=== PATIENT | male | born 1965 | race Caucasian/White ===

== ENCOUNTER 2017-03-01 10:29 | Emergency (ER) | payer SELFPAY ==
[~2017-03-01] VITALS: Ht 182.9 cm; Wt 93.0 kg
[2017-03-01 10:30] VITALS: BP 167/95; PULSE 102; RESP 15; TEMP 97.8; O2SAT 97
[2017-03-01] MEDS ORDERED: ADDE30TA PO (10:45)
[2017-03-01] MEDS ORDERED: CLON0.2T PO (10:45)
[2017-03-01] MEDS ORDERED: LISI-515 PO (10:45)
[2017-03-01] MEDS ORDERED: TRAZ1TAB14 PO (10:45)
[2017-03-01 10:48] VITALS: BP 123/93; PULSE 86; RESP 18; O2SAT 97
[2017-03-01] MEDS ORDERED: methylPREDNISolone SOD SUCC 125 MG/2 ML VIAL IV PUSH ONE (11:00)
--- NOTE | 2017-03-01 11:06 | PD ---
HPI Chief Complaint: Respiratory Symptoms Time Seen by Provider: 10:47 Travel History International Travel<30 days: No Contact w/Intl Traveler<30days: No Traveled to known affect area: No History of Present Illness HPI 51yo M with PMH of COPD presents to the ED with c/o productive cough and sob for 2 weeks. States he went to urgent care and finished a 10 day course of antibiotics for URI. Pt said he has COPD but has no money for pumps. Also with sharp chest pain for 3-4 days with cough and inspiration. +Chills on and off but no documented fever. Cholecystectomy 2-3 months ago. Denies any history of PE/DVT, hemoptysis. PFSH Past Medical History Asthma: Yes Depression: Yes Hypertension: Yes Respiratory: Yes (COPD, BRONCHITIS) Past Surgical History Abdominal Surgery: Yes Cholecystectomy: Yes Tonsillectomy: Yes Other Surgery: Yes (right meniscus) Social History Alcohol Use: No Tobacco Use: Yes Substance Use: No Allergies-Medications (Allergen,Severity, Reaction): Coded Allergies: Penicillins (Verified Allergy, Severe, 03/01/17) Reported Meds & Prescriptions Reported Meds & Active Scripts Active Reported Adderall (Amphetamine-Dextroamphetamine) 30 Mg Tab 30 Mg PO TID Avoid late evening doses. Space doses at least 4 to 6 hours if more than once/day dosing. Trazodone (Trazodone HCl) 150 Mg Tablet 150 Mg PO HS Clonidine (Clonidine HCl) 0.2 Mg Tab 0.2 Mg PO DAILY Lisinopril 20 Mg Tab 20 Mg PO DAILY Review of Systems Except as stated in HPI: all other systems reviewed are Neg Physical Exam Narrative GENERAL: 51yo M in mild distress. SKIN: Focused skin assessment warm/dry. HEAD: Atraumatic. Normocephalic. EYES: Pupils equal and round. No scleral icterus. No injection or drainage. ENT: No nasal bleeding or discharge. Mucous membranes pink and moist. NECK: Trachea midline. No JVD. CARDIOVASCULAR: Regular rate and rhythm. No murmur appreciated. RESPIRATORY: No accessory muscle use. Clear to auscultation. Breath sounds equal bilaterally. Saturating at 98% on RA. GASTROINTESTINAL: Abdomen soft, non-tender, nondistended. MUSCULOSKELETAL: No obvious deformities. No clubbing. No cyanosis. No edema. NEUROLOGICAL: Awake and alert. No obvious cranial nerve deficits. Motor grossly within normal limits. Normal speech. PSYCHIATRIC: Appropriate mood and affect; insight and judgment normal. Data Data Last Documented VS Vital Signs Date Time Temp Pulse Resp B/P (MAP) Pulse Ox O2 Delivery O2 Flow Rate FiO2 03/01/17 10:48 86 18 123/93 (103) 97 Room Air 03/01/17 10:30 97.8 Orders Orders Complete Blood Count With Diff (03/01/17 11:00) Basic Metabolic Panel (Bmp) (03/01/17 11:00) D-Dimer (03/01/17 11:00) Act Partial Throm Time (Ptt) (03/01/17 11:00) Prothrombin Time / Inr (Pt) (03/01/17 11:00) Troponin I (03/01/17 11:00) Influenzae A/B Antigen (03/01/17 11:00) Chest, Single Ap (03/01/17 11:00) Methylprednisolone So Succ Inj (Solumedr (03/01/17 11:00) Albuterol-Ipratropium Neb (Duoneb Neb) (03/01/17 11:00) Labs Laboratory Tests Test 03/01/17 11:06 White Blood Count 11.2 TH/MM3 Red Blood Count 4.81 MIL/MM3 Hemoglobin 14.6 GM/DL Hematocrit 43.8 % Mean Corpuscular Volume 90.9 FL Mean Corpuscular Hemoglobin 30.3 PG Mean Corpuscular Hemoglobin Concent 33.4 % Red Cell Distribution Width 13.7 % Platelet Count 182 TH/MM3 Mean Platelet Volume 9.3 FL Neutrophils (%) (Auto) 75.5 % Lymphocytes (%) (Auto) 16.8 % Monocytes (%) (Auto) 4.9 % Eosinophils (%) (Auto) 2.6 % Basophils (%) (Auto) 0.2 % Neutrophils # (Auto) 8.4 TH/MM3 Lymphocytes # (Auto) 1.9 TH/MM3 Monocytes # (Auto) 0.5 TH/MM3 Eosinophils # (Auto) 0.3 TH/MM3 Basophils # (Auto) 0.0 TH/MM3 CBC Comment DIFF FINAL Differential Comment Prothrombin Time 10.3 SEC Prothromb Time International Ratio 0.9 RATIO Activated Partial Thromboplast Time 27.1 SEC D-Dimer Quantitative (PE/DVT) LESS THAN 0.19 MG/L FEU Blood Urea Nitrogen 11 MG/DL Creatinine 1.12 MG/DL Random Glucose 95 MG/DL Calcium Level 8.5 MG/DL Sodium Level 140 MEQ/L Potassium Level 4.0 MEQ/L Chloride Level 107 MEQ/L Carbon Dioxide Level 25.1 MEQ/L Anion Gap 8 MEQ/L Estimat Glomerular Filtration Rate 69 ML/MIN Troponin I LESS THAN 0.02 NG/ML MDM Medical Decision Making Medical Screen Exam Complete: Yes Emergency Medical Condition: Yes Interpretation(s) EKG: NSR 91bpm. Normal axis. No ST segment elevation or depression. Differential Diagnosis Bronchitis vs. Pneumonia vs. atypical chest pain vs. PE vs. COPD Narrative Course 51yo M with URI symptoms. Labs reviewed, WBC 11.2. Troponin negative. D- dimer negative. CXR showed no acute disease. Pt given methylprednisolone and duonebs x3 because he wants it and has COPD. Pt is not wheezing. Pt reevaluated at bedside and feels better. Return precautions given. Diagnosis Primary Impression: URI (upper respiratory infection) Qualified Codes: J06.9 - Acute upper respiratory infection, unspecified Patient Instructions: General Instructions Departure Forms: Tests/Procedures Additional Instructions: Please follow up with [facility] in 3-7 days. Return to the ED if symptoms worsen. Med/Other Pt SpecificInfo: Prescription(s) given Scripts Albuterol 18 GM Inh (Ventolin Hfa 18 GM Inh) 90 Mcg/Act Aer 2 PUFF INH Q4H Y for SHORTNESS OF BREATH, #1 INHALER 0 Refills Prov: Laura Cardozo DO 03/01/17 Prednisone (Deltasone) 20 Mg Tab 20 MG PO BID for 5 Days, #10 TAB 0 Refills Prov: Laura Cardozo DO 03/01/17 Disposition: 01 DISCHARGE HOME Condition: Stable Laura Cardozo DO Mar 01, 2017 11:06
[2017-03-01] MEDS: RESP: ALBUTEROL 2.5 MG/IPRATROPIUM 0.5 MG NEB (SCH) INH (11:09)
--- NOTE | 2017-03-01 11:33 | RADRPT ---
EXAM DATE/TIME: 03/01/2017 11:10 [facility] COMPARISON: No previous studies available for comparison. INDICATIONS : Shortness of breath and midline chest pain that has worsened in the last three days. MEDICAL HISTORY : Chronic obstructive pulmonary disease. Asthma. SURGICAL HISTORY : None. ENCOUNTER: Initial ACUITY: 2 weeks PAIN SCORE: 5/10 LOCATION: Chest, midline. FINDINGS: A single view of the chest demonstrates the lungs to be symmetrically aerated without evidence of mas s, infiltrate or effusion. The cardiomediastinal contours are unremarkable. Osseous structures are intact. CONCLUSION: No acute disease. Gavin Osborn MD on March 01, 2017 at 11:32 Board Certified Radiologist. This report was verified electronically.
[2017-03-01 11:59] LABS: AUTOMATED NEUTROPHIL # 8.4 TH/MM3 (1.8-7.7); BASOPHIL % 0.2 % (0.0-2.0); EOSINOPHIL # 0.3 TH/MM3 (0-0.4); EOSINOPHIL % 2.6 % (0.0-4.0); HEMATOCRIT 43.8 % (39.0-51.0); HEMO FLAGS DIFF FINAL; LYMPH % 16.8 % (9.0-44.0); LYMPHOCYTE # 1.9 TH/MM3 (1.0-4.8); MEAN CELL VOLUME 90.9 FL (80.0-100.0); MEAN CORPUSCULAR HEMOGLOBIN 30.3 PG (27.0-34.0); MEAN CORPUSCULAR HGB CONC 33.4 % (32.0-36.0); MONO % 4.9 % (0.0-8.0); NEUT % 75.5 % (16.0-70.0); PLATELET COUNT 182 TH/MM3 (150-450); RED BLOOD COUNT 4.81 MIL/MM3 (4.50-5.90); RED CELL DISTRIBUTION WIDTH 13.7 % (11.6-17.2); WHITE BLOOD COUNT 11.2 TH/MM3 (4.0-11.0)
[2017-03-01 12:16] LABS: APTT (PATIENT) 27.1 SEC (24.3-30.1); INTERNATIONAL NORMALIZED RATIO 0.9 RATIO; PROTHROMBIN TIME - PATIENT 10.3 SEC (9.8-11.6)
[2017-03-01 12:18] LABS: ANION GAP 8 MEQ/L (5-15); BICARBONATE 25.1 MEQ/L (21.0-32.0); BLOOD UREA NITROGEN 11 MG/DL (7-18); CHLORIDE 107 MEQ/L (98-107); GLOMERULAR FILTRATION RATE 69 ML/MIN (>89); SODIUM (NA) 140 MEQ/L (136-145)
[2017-03-01] MEDS ORDERED: VENTAER INH (13:46)
[2017-03-01] MEDS ORDERED: PRED-503 PO (13:46)
--- NOTE | 2017-03-02 12:49 | EKG ---
Date Performed: 03/01/2017 Time Performed: 10:42:56 PTAGE: 51 years EKG: Sinus rhythm NORMAL ECG INTERPRETATION BASED ON A DEFAULT AGE OF 40 YEARS NO PREVIOUS TRACING DOCTOR: Juno Aaron Interpretating Date/Time 03/02/2017 12:49:10
== END 2017-03-01 13:48 | disposition home or self-care (01) ==
LOC: NEPC 10:29
DX: J06.9 Acute upper respiratory infection, unspecified (principal); J44.9 Chronic obstructive pulmonary disease, unspecified; F32.9 Major depressive disorder, single episode, unspecified; I10 Essential (primary) hypertension; Z72.0 Tobacco use; Z88.0 Allergy status to penicillin; Z79.899 Other long term (current) drug therapy
CPT/HCPCS: 71010; 80048; 84484; 85025; 85379; 85610; 85730; 87804; 93005; 94640; 94664; 96374; 99285; J2930

== ENCOUNTER 2017-03-04 10:31 | Emergency (ER) | payer SELFPAY ==
[~2017-03-04] VITALS: Ht 182.9 cm; Wt 90.0 kg
[~2017-03-04 10:31] MED LIST: ADDE30TA PO; CLON0.2T PO; LISI-515 PO; PRED-503 PO; TRAZ1TAB14 PO; VENTAER INH
[2017-03-04 10:33] VITALS: BP 139/88; PULSE 93; RESP 18; TEMP 98.1; O2SAT 95
[2017-03-04] MEDS ORDERED: RESP: LIDOCAINE HCL 4% PF 5 ML NEB NEB ONE (13:15)
[2017-03-04] MEDS ORDERED: predniSONE 20 MG TAB PO ONE (13:15)
--- NOTE | 2017-03-04 13:31 | PD ---
HPI Chief Complaint: Respiratory Symptoms Time Seen by Provider: 13:15 Travel History International Travel<30 days: No Contact w/Intl Traveler<30days: No Traveled to known affect area: No History of Present Illness HPI The patient is a 51-year-old male who presents to the emergency department for cough symptoms of 3 weeks duration. The patient states she was evaluated in the emergency department 3 days ago, was diagnosed with COPD exacerbation and discharged home with an albuterol inhaler. The patient states he is unable to afford his albuterol inhaler. He does have a history of tobacco use, last cigarette was at 10:30 AM today. He does note a productive cough producing yellow sputum as well as anterior chest wall pain and upper back pain secondary to coughing. He also complains of mild congestion and sore throat. He does note mild shortness of breath with wheezing. The patient does have a nebulizer at home, however, does not have the medications to use and his nebulizer. The patient had a workup in the emergency department 3 days prior to arrival which included chest x-ray and lab work which was unremarkable. The patient states he recently moved to the local area and does not have a local primary physician. PFSH Past Medical History Asthma: Yes Depression: Yes Hypertension: Yes Respiratory: Yes (COPD, BRONCHITIS) Past Surgical History Abdominal Surgery: Yes Cholecystectomy: Yes Tonsillectomy: Yes Other Surgery: Yes (right meniscus) Social History Alcohol Use: No Tobacco Use: Yes Substance Use: No Allergies-Medications (Allergen,Severity, Reaction): Coded Allergies: Penicillins (Verified Allergy, Severe, 03/04/17) Reported Meds & Prescriptions Reported Meds & Active Scripts Active Ventolin Hfa 18 GM Inh (Albuterol Sulfate) 90 Mcg/Act Aer 2 Puff INH Q4H PRN Deltasone (Prednisone) 20 Mg Tab 20 Mg PO BID 5 Days Reported Adderall (Amphetamine-Dextroamphetamine) 30 Mg Tab 30 Mg PO TID Avoid late evening doses. Space doses at least 4 to 6 hours if more than once/day dosing. Trazodone (Trazodone HCl) 150 Mg Tablet 150 Mg PO HS Clonidine (Clonidine HCl) 0.2 Mg Tab 0.2 Mg PO DAILY Lisinopril 20 Mg Tab 20 Mg PO DAILY Review of Systems Except as stated in HPI: all other systems reviewed are Neg General / Constitutional: No: Fever HENT: Positive: Sore Throat, Congestion Cardiovascular: Positive: Chest Pain or Discomfort (chest wall pain secondary to coughing) Respiratory: Positive: Cough, Shortness of Breath, Wheezing Gastrointestinal: No: Nausea, Vomiting Musculoskeletal: No: Weakness Neurologic: No: Dizziness Physical Exam Narrative GENERAL: Awake, alert, nontoxic-appearing 51-year-old male who appears his stated age and is in no acute respiratory distress. SKIN: Focused skin assessment warm/dry. HEAD: Atraumatic. Normocephalic. EYES: Pupils equal and round. No scleral icterus. No injection or drainage. ENT: No nasal bleeding or discharge. Cobblestoning in posterior oropharynx. NECK: Trachea midline. No JVD. CARDIOVASCULAR: Regular rate and rhythm. No murmur appreciated. RESPIRATORY: No accessory muscle use. Prolonged expiratory phase with diffuse wheezing. GASTROINTESTINAL: Abdomen soft, non-tender, nondistended. No rebound tenderness. MUSCULOSKELETAL: No obvious deformities. No clubbing. No cyanosis. No edema. NEUROLOGICAL: Awake and alert. No obvious cranial nerve deficits. Motor grossly within normal limits. Normal speech. PSYCHIATRIC: Appropriate mood and affect; insight and judgment normal. Data Data Last Documented VS Vital Signs Date Time Temp Pulse Resp B/P (MAP) Pulse Ox O2 Delivery O2 Flow Rate FiO2 03/04/17 14:51 82 18 151/79 (103) 98 03/04/17 13:33 Room Air 03/04/17 10:33 98.1 Orders Orders Oximetry (03/04/17 13:15) Albuterol-Ipratropium Neb (Duoneb Neb) (03/04/17 13:15) Lidocaine Pf 4% Neb (Lidocaine Pf 4% Neb (03/04/17 13:15) Prednisone (Deltasone) (03/04/17 13:15) MDM Medical Decision Making Medical Screen Exam Complete: Yes Emergency Medical Condition: Yes Medical Record Reviewed: Yes Differential Diagnosis Differential diagnosis includes COPD exacerbation, bronchitis, pneumonia, congestive heart failure, cardiomyopathy, URI, viral syndrome. Narrative Course I reviewed the patient's EMR from March 01, 2017. The patient had an x-ray which was unremarkable. D-dimer was less than 0.19, no indication CT pulmonary angiogram. Therefore, the patient was administered prednisone 60 mg orally and 3 DuoNeb's with respiratory lidocaine. The patient is reevaluated after nebulizers, his wheezing is significantly improved. The patient be discharged home on prednisone, Zithromax, and albuterol nebulizers. Diagnosis Primary Impression: Bronchitis Referrals: [facility] Patient Instructions: General Instructions Additional Instructions: Medications as directed. Stop smoking. Follow-up at the health clinic. Work excuse for 2 days. Return if symptoms worsen or progress. Med/Other Pt SpecificInfo: Prescription(s) given Scripts Albuterol Neb (Albuterol Neb) 2.5 Mg/3 Ml Neb 2.5 MG NEB Q4HR NEB Y for SHORTNESS OF BREATH, #60 NEBULE 0 Refills Prov: El Chang MD 03/04/17 Azithromycin (Zithromax Z-Ozzie) 250 Mg Dspk 250 MG PO DIRECTED for Infection, #1 DSPK 0 Refills 500 MG (2 tabs) day 1, then 1 tab days 2-5. Prov: El Chang MD 03/04/17 Prednisone (Deltasone) 20 Mg Tab 40 MG PO DAILY for 5 Days, #10 TAB 0 Refills Prov: El Chang MD 03/04/17 Disposition: 01 DISCHARGE HOME Condition: Stable El Chang MD Mar 04, 2017 13:31
[2017-03-04 13:33] VITALS: O2SAT 97
[2017-03-04] MEDS: RESP: ALBUTEROL 2.5 MG/IPRATROPIUM 0.5 MG NEB (SCH) INH ×2 (13:45→13:46)
[2017-03-04 14:51] VITALS: BP 151/79
[2017-03-04] MEDS ORDERED: PRED-503 PO (15:09)
[2017-03-04] MEDS ORDERED: ZITHTAB PO (15:09)
[2017-03-04] MEDS ORDERED: ALBU0.08 NEB (15:09)
--- NOTE | 2017-03-05 10:25 | PD ---
Data Data Last Documented VS Vital Signs Date Time Temp Pulse Resp B/P (MAP) Pulse Ox O2 Delivery O2 Flow Rate FiO2 03/04/17 14:51 82 18 151/79 (103) 98 03/04/17 13:33 Room Air 03/04/17 10:33 98.1 Orders Orders Oximetry (03/04/17 13:15) Albuterol-Ipratropium Neb (Duoneb Neb) (03/04/17 13:15) Lidocaine Pf 4% Neb (Lidocaine Pf 4% Neb (03/04/17 13:15) Prednisone (Deltasone) (03/04/17 13:15) Ed Discharge Order (03/04/17 15:10) MDM Supervised Visit with [facility]: No Narrative Course Received a request from case management to refill this patient's medications as he lost on the bus. Patient seen and examined for bronchitis yesterday. I called and his prescriptions as prescribed by Dr. Peg Chang last night. Diagnosis Primary Impression: Bronchitis Referrals: NO PRIMARY CARE PHYSICIAN (PCP) [facility] Patient Instructions: General Instructions Departure Forms: Tests/Procedures Additional Instruction: Medications as directed. Stop smoking. Follow-up at the health clinic. Work excuse for 2 days. Return if symptoms worsen or progress. Scripts Albuterol Neb (Albuterol Neb) 2.5 Mg/3 Ml Neb 2.5 MG NEB Q4HR NEB Y for SHORTNESS OF BREATH, #60 NEBULE 0 Refills Prov: El Chang MD 03/04/17 Azithromycin (Zithromax Z-Ozzie) 250 Mg Dspk 250 MG PO DIRECTED for Infection, #1 DSPK 0 Refills 500 MG (2 tabs) day 1, then 1 tab days 2-5. Prov: El Chang MD 03/04/17 Prednisone (Deltasone) 20 Mg Tab 40 MG PO DAILY for 5 Days, #10 TAB 0 Refills Prov: El Chang MD 03/04/17 Disposition: 01 DISCHARGE HOME Condition: Stable Sterling Miller MD Mar 05, 2017 10:25
== END 2017-03-04 15:23 | disposition home or self-care (01) ==
LOC: NEPD 10:31
DX: J40 Bronchitis, not specified as acute or chronic (principal); J44.1 Chronic obstructive pulmonary disease with (acute) exacerbation; F32.9 Major depressive disorder, single episode, unspecified; I10 Essential (primary) hypertension; F17.210 Nicotine dependence, cigarettes, uncomplicated; Z79.899 Other long term (current) drug therapy; Z88.0 Allergy status to penicillin
CPT/HCPCS: 94640; 94664; 99284; J7512

== ENCOUNTER 2017-03-28 14:25 | Emergency (ER) | payer OTHER ==
[~2017-03-28] VITALS: Ht 182.9 cm; Wt 92.0 kg
[~2017-03-28 14:25] MED LIST changes: +ALBU0.08 NEB; +ZITHTAB PO
[2017-03-28] MEDS ORDERED: IOHEXOL 350 MG/ML 10 ML VIAL (for RAD DIAG) IVCONTRAST ONE (14:26)
[2017-03-28 14:41] VITALS: BP 177/114; PULSE 94; RESP 20; TEMP 97.7; O2SAT 95
[2017-03-28] MEDS ORDERED: MORPHINE SULFATE 4 MG/ML INJ IV PUSH ONE (15:00)
[2017-03-28] MEDS ORDERED: ONDANSETRON HCL 4 MG/2 ML VIAL IVP ONE (15:00)
[2017-03-28] MEDS ORDERED: SODIUM CHLORIDE 0.9% FLUSH 10 ML FLUSH IV FLUSH PRN (15:00)
[2017-03-28 15:11] VITALS: RESP 20
[2017-03-28 15:38] LABS: AUTOMATED NEUTROPHIL # 4.2 TH/MM3 (1.8-7.7); BASOPHIL % 0.5 % (0.0-2.0); EOSINOPHIL # 0.4 TH/MM3 (0-0.4); EOSINOPHIL % 4.2 % (0.0-4.0); HEMATOCRIT 48.4 % (39.0-51.0); HEMO FLAGS DIFF FINAL; LYMPH % 38.2 % (9.0-44.0); LYMPHOCYTE # 3.2 TH/MM3 (1.0-4.8); MEAN CELL VOLUME 88.5 FL (80.0-100.0); MEAN CORPUSCULAR HEMOGLOBIN 30.6 PG (27.0-34.0); MEAN CORPUSCULAR HGB CONC 34.6 % (32.0-36.0); MONO % 6.2 % (0.0-8.0); NEUT % 50.9 % (16.0-70.0); PLATELET COUNT 213 TH/MM3 (150-450); RED BLOOD COUNT 5.47 MIL/MM3 (4.50-5.90); RED CELL DISTRIBUTION WIDTH 13.7 % (11.6-17.2); WHITE BLOOD COUNT 8.3 TH/MM3 (4.0-11.0)
[2017-03-28 15:47] LABS: BLOOD, URINE NEG (NEG); COMMENT (UR) CULT NOT INDICATED; CULTURE IF INDICATED CULT NOT INDICATED; GLUCOSE,URINE NEG (NEG); HYALINE CAST, URINE 1 /lpf (RARE); KETONE, URINE NEG (NEG); MUCUS URINE FEW /lpf (OCC); NITRITE,URINE NEG (NEG); URINE COLOR YELLOW (YELLW/STRAW)
--- NOTE | 2017-03-28 15:54 | RADRPT ---
EXAM DATE/TIME: 03/28/2017 15:24 [facility] COMPARISON: No previous studies available for comparison. INDICATIONS : Right upper quadrant pain. IV CONTRAST: 100 cc Omnipaque 350 (iohexol) IV ORAL CONTRAST: No oral contrast ingested. RADIATION DOSE: 7.56 CTDIvol (mGy) MEDICAL HISTORY : Pancreatitis. Hypertension. SURGICAL HISTORY : Cholecystectomy. ENCOUNTER: Initial ACUITY: 1 week PAIN SCALE: 5/10 LOCATION: Right upper quadrant TECHNIQUE: Volumetric scanning of the abdomen and pelvis was performed. Using automated exposure control and ad justment of the mA and/or kV according to patient size, radiation dose was kept as low as reasonably achievable to obtain optimal diagnostic quality images. DICOM format image data is available electro nically for review and comparison. FINDINGS: LOWER LUNGS: The visualized lower lungs are clear. LIVER: Liver density suggesting a ptosis. No focal lesion is seen. Cholecystectomy clips are present. There is no dilation of the biliary tree. SPLEEN: Normal size without lesion. PANCREAS: Within normal limits. KIDNEYS: Normal in size and shape. There is no mass, stone or hydronephrosis. ADRENAL GLANDS: Within normal limits. VASCULAR: There is no aortic aneurysm. There is mild atherosclerotic disease. BOWEL/MESENTERY: The stomach, small bowel, and colon demonstrate no acute abnormality. There is no free intraperitone al air or fluid. ABDOMINAL WALL: Within normal limits. RETROPERITONEUM: There is no lymphadenopathy. BLADDER: No wall thickening or mass. REPRODUCTIVE: Within normal limits. INGUINAL: There is no lymphadenopathy or hernia. MUSCULOSKELETAL: There are mild degenerative changes of the lumbar spine. CONCLUSION: 1. No acute finding is identified within the abdomen or pelvis to explain the clinical symptoms. 2. Nonacute findings include mild atherosclerotic disease and mild hepatomegaly with steatosis. Jose Car MD on March 28, 2017 at 15:48 Board Certified Radiologist. This report was verified electronically.
--- NOTE | 2017-03-28 16:06 | PD ---
HPI Chief Complaint: Abdominal Pain Time Seen by Provider: 14:42 Travel History International Travel<30 days: No Contact w/Intl Traveler<30days: No Traveled to known affect area: No History of Present Illness HPI 51-year-old male presents to emergency department complaining of abdominal pain for 4-5 days. Patient states that his pain is the right upper quadrant and is severe in nature. Does not radiate and is constant. Says that he has had an alcohol binge over the last 4-5 days and has felt 'cold' for about 2 days. Patient denies fever, chest pain, shortness of breath, diarrhea. Patient did feel nauseous and Zofran was administered by [facility]. Patient states that he has had a history of recurrent pancreatitis but was unable to tell me the cause and he does not follow-up with a specialist. Patient does want to go to rehabilitation to quit drinking. PFSH Past Medical History Asthma: Yes Depression: Yes Diminished Hearing: No Hypertension: Yes Respiratory: Yes (COPD, BRONCHITIS) Pancreatitis: Yes Tetanus Vaccination: > 5 Years Influenza Vaccination: No Past Surgical History Abdominal Surgery: Yes Cholecystectomy: Yes Tonsillectomy: Yes Other Surgery: Yes (right meniscus) Social History Alcohol Use: Yes (occassional) Tobacco Use: No Substance Use: No Allergies-Medications (Allergen,Severity, Reaction): Coded Allergies: Penicillins (Verified Allergy, Severe, 03/28/17) Reported Meds & Prescriptions Reported Meds & Active Scripts Active No Active Prescriptions or Reported Medications Review of Systems Except as stated in HPI: all other systems reviewed are Neg Physical Exam Narrative GENERAL: Well-developed well-nourished in moderate distress SKIN: Focused skin assessment warm/dry. HEAD: Atraumatic. Normocephalic. EYES: Pupils equal and round. No scleral icterus. No injection or drainage. ENT: No nasal bleeding or discharge. Mucous membranes slightly dry NECK: Trachea midline. No JVD. No lymphadenopathy CARDIOVASCULAR: Regular rate and rhythm. No murmur appreciated. RESPIRATORY: No accessory muscle use. Clear to auscultation. Breath sounds equal bilaterally. GASTROINTESTINAL: Abdomen tender, nondistended, without organomegaly MUSCULOSKELETAL: No obvious deformities. No clubbing. No cyanosis. No edema. NEUROLOGICAL: Awake and alert. No obvious cranial nerve deficits. Motor grossly within normal limits. Normal speech. PSYCHIATRIC: Appropriate mood and affect; insight and judgment normal. Data Data Last Documented VS Vital Signs Date Time Temp Pulse Resp B/P (MAP) Pulse Ox O2 Delivery O2 Flow Rate FiO2 03/28/17 15:11 20 03/28/17 14:41 97.7 94 177/114 (135) 95 Orders Orders Complete Blood Count With Diff (03/28/17 14:48) Comprehensive Metabolic Panel (03/28/17 14:48) Lipase (03/28/17 14:48) Urinalysis - C+S If Indicated (03/28/17 14:48) Iv Access Insert/Monitor (03/28/17 14:48) Ecg Monitoring (03/28/17 14:48) Oximetry (03/28/17 14:48) NPO (03/28/17 14:48) Morphine Inj (Morphine Inj) (03/28/17 15:00) Ondansetron Inj (Zofran Inj) (03/28/17 15:00) Sodium Chloride 0.9% Flush (Ns Flush) (03/28/17 15:00) Ct Abd/Pel W Iv Contrast(Rout) (03/28/17 ) Iohexol 350 Inj (Omnipaque 350 Inj) (03/28/17 14:26) Al-Mag Hy-Si 40-40-4 Mg/Ml Liq (Mag-Al P (03/28/17 16:45) Ed Discharge Order (03/28/17 17:17) Labs Laboratory Tests Test 03/28/17 15:20 White Blood Count 8.3 TH/MM3 Red Blood Count 5.47 MIL/MM3 Hemoglobin 16.7 GM/DL Hematocrit 48.4 % Mean Corpuscular Volume 88.5 FL Mean Corpuscular Hemoglobin 30.6 PG Mean Corpuscular Hemoglobin Concent 34.6 % Red Cell Distribution Width 13.7 % Platelet Count 213 TH/MM3 Mean Platelet Volume 8.5 FL Neutrophils (%) (Auto) 50.9 % Lymphocytes (%) (Auto) 38.2 % Monocytes (%) (Auto) 6.2 % Eosinophils (%) (Auto) 4.2 % Basophils (%) (Auto) 0.5 % Neutrophils # (Auto) 4.2 TH/MM3 Lymphocytes # (Auto) 3.2 TH/MM3 Monocytes # (Auto) 0.5 TH/MM3 Eosinophils # (Auto) 0.4 TH/MM3 Basophils # (Auto) 0.0 TH/MM3 CBC Comment DIFF FINAL Differential Comment Urine Color YELLOW Urine Turbidity CLEAR Urine pH 6.0 Urine Specific [place] 1.016 Urine Protein NEG mg/dL Urine Glucose (UA) NEG mg/dL Urine Ketones NEG mg/dL Urine Occult Blood NEG Urine Nitrite NEG Urine Bilirubin NEG Urine Urobilinogen LESS THAN 2.0 MG/DL Urine Leukocyte Esterase NEG Urine WBC LESS THAN 1 /hpf Urine Hyaline Casts 1 /lpf Urine Mucus FEW /lpf Microscopic Urinalysis Comment CULT NOT INDICATED Blood Urea Nitrogen 21 MG/DL Creatinine 1.06 MG/DL Random Glucose 99 MG/DL Total Protein 7.3 GM/DL Albumin 4.1 GM/DL Calcium Level 7.9 MG/DL Alkaline Phosphatase 80 U/L Aspartate Amino Transf (AST/SGOT) 234 U/L Alanine Aminotransferase (ALT/SGPT) 248 U/L Total Bilirubin 2.0 MG/DL Sodium Level 134 MEQ/L Potassium Level 3.7 MEQ/L Chloride Level 101 MEQ/L Carbon Dioxide Level 21.9 MEQ/L Anion Gap 11 MEQ/L Estimat Glomerular Filtration Rate 73 ML/MIN Lipase 92 U/L MDM Medical Decision Making Medical Screen Exam Complete: Yes Emergency Medical Condition: Yes Differential Diagnosis Pancreatitis, hepatitis, idiopathic abdominal pain, urinary tract infection, Narrative Course 51-year-old male presents to emergency department complaining of abdominal pain for 4-5 days. Patient states that his pain is the right upper quadrant and is severe in nature. Does not radiate and is constant. Says that he has had an alcohol binge over the last 4-5 days and has felt 'cold' for about 2 days. Patient denies fever, chest pain, shortness of breath, diarrhea. Patient did feel nauseous and Zofran was administered by [facility]. Patient states that he has had a history of recurrent pancreatitis but was unable to tell me the cause and he does not follow-up with a specialist. Patient does want to go to rehabilitation to quit drinking. Laboratory Tests Test 03/28/17 15:20 White Blood Count 8.3 TH/MM3 Red Blood Count 5.47 MIL/MM3 Hemoglobin 16.7 GM/DL Hematocrit 48.4 % Mean Corpuscular Volume 88.5 FL Mean Corpuscular Hemoglobin 30.6 PG Mean Corpuscular Hemoglobin Concent 34.6 % Red Cell Distribution Width 13.7 % Platelet Count 213 TH/MM3 Mean Platelet Volume 8.5 FL Neutrophils (%) (Auto) 50.9 % Lymphocytes (%) (Auto) 38.2 % Monocytes (%) (Auto) 6.2 % Eosinophils (%) (Auto) 4.2 % Basophils (%) (Auto) 0.5 % Neutrophils # (Auto) 4.2 TH/MM3 Lymphocytes # (Auto) 3.2 TH/MM3 Monocytes # (Auto) 0.5 TH/MM3 Eosinophils # (Auto) 0.4 TH/MM3 Basophils # (Auto) 0.0 TH/MM3 CBC Comment DIFF FINAL Differential Comment Urine Color YELLOW Urine Turbidity CLEAR Urine pH 6.0 Urine Specific [place] 1.016 Urine Protein NEG mg/dL Urine Glucose (UA) NEG mg/dL Urine Ketones NEG mg/dL Urine Occult Blood NEG Urine Nitrite NEG Urine Bilirubin NEG Urine Urobilinogen LESS THAN 2.0 MG/DL Urine Leukocyte Esterase NEG Urine WBC LESS THAN 1 /hpf Urine Hyaline Casts 1 /lpf Urine Mucus FEW /lpf Microscopic Urinalysis Comment CULT NOT INDICATED Blood Urea Nitrogen 21 MG/DL Creatinine 1.06 MG/DL Random Glucose 99 MG/DL Total Protein 7.3 GM/DL Albumin 4.1 GM/DL Calcium Level 7.9 MG/DL Alkaline Phosphatase 80 U/L Aspartate Amino Transf (AST/SGOT) 234 U/L Alanine Aminotransferase (ALT/SGPT) 248 U/L Total Bilirubin 2.0 MG/DL Sodium Level 134 MEQ/L Potassium Level 3.7 MEQ/L Chloride Level 101 MEQ/L Carbon Dioxide Level 21.9 MEQ/L Anion Gap 11 MEQ/L Estimat Glomerular Filtration Rate 73 ML/MIN Lipase 92 U/L Last 24 hours Impressions Abdomen/Pelvis CT 03/28/17 0000 Signed Impressions: Service Date/Time: Tuesday, March 28, 2017 15:24 - CONCLUSION: 1. No acute finding is identified within the abdomen or pelvis to explain the clinical symptoms. 2. Nonacute findings include mild atherosclerotic disease and mild hepatomegaly with steatosis. Jose Car MD Patient was given morphine and Zofran with improvement in his symptoms. I explained the findings the patient and advised follow-up with a supervisor belt and link assembly. Patient wants to go to an alcoholic rehabilitation facility. Apparently patient had relapsed with alcohol. As I was consulting this with my physician, patient became agitated and wanted to leave immediately. Because all results were stable and did not warrant admission or observation, patient was discharged. Advised patient to return to emergency for worsening or persistent symptoms. Diagnosis Primary Impression: Alcohol use Additional Impression: Gastritis Qualified Codes: K29.20 - Alcoholic gastritis without bleeding Referrals: [facility] Additional Instructions: Follow-up with primary care physician within 2-3 days. Follow up with Ezekiel rojas for the alcoholism. For symptoms persist or worsen return to the emergency department. Scripts No Active Prescriptions or Reported Meds Disposition: 01 DISCHARGE HOME Condition: Stable Brynn Jacobo Mar 28, 2017 16:06
[2017-03-28 16:07] LABS: ALT (GPT) 248 U/L (12-78); ANION GAP 11 MEQ/L (5-15); AST (GOT) 234 U/L (15-37); BICARBONATE 21.9 MEQ/L (21.0-32.0); BLOOD UREA NITROGEN 21 MG/DL (7-18); CHLORIDE 101 MEQ/L (98-107); GLOMERULAR FILTRATION RATE 73 ML/MIN (>89); POTASSIUM 3.7 MEQ/L (3.5-5.1); SODIUM (NA) 134 MEQ/L (136-145)
[2017-03-28 16:10] LABS: ALKALINE PHOSPHATASE 80 U/L (45-117)
[2017-03-28] MEDS ORDERED: ALUMINUM/MAGNESIUM/SIMETH 30 ML CUP PO ONE (16:45)
--- NOTE | 2017-03-28 19:24 | PD ---
Data Data Last Documented VS Vital Signs Date Time Temp Pulse Resp B/P (MAP) Pulse Ox O2 Delivery O2 Flow Rate FiO2 03/28/17 15:11 20 03/28/17 14:41 97.7 94 177/114 (135) 95 Orders Orders Complete Blood Count With Diff (03/28/17 14:48) Comprehensive Metabolic Panel (03/28/17 14:48) Lipase (03/28/17 14:48) Urinalysis - C+S If Indicated (03/28/17 14:48) Iv Access Insert/Monitor (03/28/17 14:48) Ecg Monitoring (03/28/17 14:48) Oximetry (03/28/17 14:48) NPO (03/28/17 14:48) Morphine Inj (Morphine Inj) (03/28/17 15:00) Ondansetron Inj (Zofran Inj) (03/28/17 15:00) Sodium Chloride 0.9% Flush (Ns Flush) (03/28/17 15:00) Ct Abd/Pel W Iv Contrast(Rout) (03/28/17 ) Iohexol 350 Inj (Omnipaque 350 Inj) (03/28/17 14:26) Al-Mag Hy-Si 40-40-4 Mg/Ml Liq (Mag-Al P (03/28/17 16:45) Ed Discharge Order (03/28/17 17:17) Labs Laboratory Tests Test 03/28/17 15:20 White Blood Count 8.3 TH/MM3 Red Blood Count 5.47 MIL/MM3 Hemoglobin 16.7 GM/DL Hematocrit 48.4 % Mean Corpuscular Volume 88.5 FL Mean Corpuscular Hemoglobin 30.6 PG Mean Corpuscular Hemoglobin Concent 34.6 % Red Cell Distribution Width 13.7 % Platelet Count 213 TH/MM3 Mean Platelet Volume 8.5 FL Neutrophils (%) (Auto) 50.9 % Lymphocytes (%) (Auto) 38.2 % Monocytes (%) (Auto) 6.2 % Eosinophils (%) (Auto) 4.2 % Basophils (%) (Auto) 0.5 % Neutrophils # (Auto) 4.2 TH/MM3 Lymphocytes # (Auto) 3.2 TH/MM3 Monocytes # (Auto) 0.5 TH/MM3 Eosinophils # (Auto) 0.4 TH/MM3 Basophils # (Auto) 0.0 TH/MM3 CBC Comment DIFF FINAL Differential Comment Urine Color YELLOW Urine Turbidity CLEAR Urine pH 6.0 Urine Specific [place] 1.016 Urine Protein NEG mg/dL Urine Glucose (UA) NEG mg/dL Urine Ketones NEG mg/dL Urine Occult Blood NEG Urine Nitrite NEG Urine Bilirubin NEG Urine Urobilinogen LESS THAN 2.0 MG/DL Urine Leukocyte Esterase NEG Urine WBC LESS THAN 1 /hpf Urine Hyaline Casts 1 /lpf Urine Mucus FEW /lpf Microscopic Urinalysis Comment CULT NOT INDICATED Blood Urea Nitrogen 21 MG/DL Creatinine 1.06 MG/DL Random Glucose 99 MG/DL Total Protein 7.3 GM/DL Albumin 4.1 GM/DL Calcium Level 7.9 MG/DL Alkaline Phosphatase 80 U/L Aspartate Amino Transf (AST/SGOT) 234 U/L Alanine Aminotransferase (ALT/SGPT) 248 U/L Total Bilirubin 2.0 MG/DL Sodium Level 134 MEQ/L Potassium Level 3.7 MEQ/L Chloride Level 101 MEQ/L Carbon Dioxide Level 21.9 MEQ/L Anion Gap 11 MEQ/L Estimat Glomerular Filtration Rate 73 ML/MIN Lipase 92 U/L MDM Supervised Visit with CARLITOS: Yes Narrative Course The history, exam, and medical decision-making in the associated midlevel provider note were completed with my assistance. I reviewed and agree with the findings presented. I attest that I had a [id number] encounter with the patient on the same day, and personally performed and documented my assessment and findings in the medical record. *My assessment and Findings: This is a 51-year-old male who has a history of alcoholism who presents to the emergency department with epigastric abdominal pain. Labs were obtained which demonstrate an elevated total bilirubin and transaminitis. This is likely in the setting of alcohol use as he's had a cholecystectomy in the past. CT abdomen and pelvis is otherwise reassuring. I suspect the patient's symptoms are secondary to alcoholic gastritis. He was given a GI cocktail, IV fluids and antiemetics. He was discharged home. Diagnosis Primary Impression: Alcohol use Additional Impression: Gastritis Referrals: [facility] Patient Instructions: General Instructions Departure Forms: Tests/Procedures Additional Instruction: Follow-up with primary care physician within 2-3 days. Follow up with Ezekiel rojas for the alcoholism. For symptoms persist or worsen return to the emergency department. Scripts No Active Prescriptions or Reported Meds Disposition: 01 DISCHARGE HOME Condition: Stable Dionna Saab MD Mar 28, 2017 19:24
== END 2017-03-28 17:29 | disposition home or self-care (01) ==
LOC: NEPC 14:25
DX: F10.20 Alcohol dependence, uncomplicated (principal); K29.20 Alcoholic gastritis without bleeding; R16.0 Hepatomegaly, not elsewhere classified; K76.0 Fatty (change of) liver, not elsewhere classified; J45.909 Unspecified asthma, uncomplicated; I10 Essential (primary) hypertension; J44.9 Chronic obstructive pulmonary disease, unspecified; Z87.19 Personal history of other diseases of the digestive system; Z88.0 Allergy status to penicillin
CPT/HCPCS: 74177; 80053; 81001; 83690; 85025; 96374; 96375; 99285; J2270; J2405; Q9967